=== PATIENT | male | born 1955 | race Caucasian/White ===

== ENCOUNTER → 2018-09-29 | Emergency (ER) | payer OTHER, SELFPAY ==
[~2018-09-29] MED LIST: Cyclobenzaprine 10 MG TAB ONE; Ketorolac Tromethamine 60 MG/2 ML VIAL ONE
== END ==
LOC: BURERS 10:21
DX: S16.1XXA Strain of muscle, fascia and tendon at neck level, initial encounter (principal); I10 Essential (primary) hypertension; I25.10 Atherosclerotic heart disease of native coronary artery without angina pectoris; F17.210 Nicotine dependence, cigarettes, uncomplicated; X50.1XXA Overexertion from prolonged static or awkward postures, initial encounter
CPT/HCPCS: 96372; J1885

== ENCOUNTER 2019-07-27 09:29 | Emergency (ER) | payer OTHER ==
[2019-07-27] MEDS ORDERED: Ketorolac Tromethamine 60 MG/2 ML VIAL ONE (09:52)
== END 2019-07-27 10:10 | disposition home or self-care (01) ==
LOC: BURERS 09:29
DX: S39.012A Strain of muscle, fascia and tendon of lower back, initial encounter (principal); G89.29 Other chronic pain; I10 Essential (primary) hypertension; I25.10 Atherosclerotic heart disease of native coronary artery without angina pectoris; K74.60 Unspecified cirrhosis of liver; F17.210 Nicotine dependence, cigarettes, uncomplicated; Z71.6 Tobacco abuse counseling; X50.1XXA Overexertion from prolonged static or awkward postures, initial encounter
CPT/HCPCS: 96372; 99406; J1885

== ENCOUNTER 2019-12-29 11:46 | Emergency (ER) | payer OTHER ==
[2019-12-29] MEDS ORDERED: Morphine 4 MG/ML VIAL ONE (12:12)
[2019-12-29] MEDS ORDERED: predniSONE 20 MG TAB ONE (12:13)
[2019-12-29] MEDS ORDERED: Morphine 2 MG/ML SYRINGE ONE (12:13)
== END 2019-12-29 12:56 | disposition home or self-care (01) ==
LOC: BURERS 11:46
DX: G89.29 Other chronic pain (principal); M54.5 Low back pain; I10 Essential (primary) hypertension; I25.10 Atherosclerotic heart disease of native coronary artery without angina pectoris; F17.210 Nicotine dependence, cigarettes, uncomplicated
CPT/HCPCS: 96372; 99282; J2270; J7512